=== PATIENT | male | born 1955 | race Caucasian/White ===

== ENCOUNTER 2017-08-05 13:51 | Inpatient (IN) | payer OTHER ==
[~2017-08-05] VITALS: Ht 190.5 cm; Wt 101.4 kg
[~2017-08-05 13:51] MED LIST: ACETAMINOPHEN325 M1 PO; ALDACTONE25 MG PO; AMLODIPINE; AMLODIPINE PO; ASPIR 8181 MG PO; ASPIRIN EC81 M1 PO; B-122500 MCG SL; BYSTOLIC10 MG PO; BYSTOLIC2.5 MG PO; CHOLESTEROL MED; CIPROFLOXACIN500 M3 OR; CLOPIDOGREL; COLACE100 MG OR; FISH OIL 1,0001 EAC5; FISH OIL 1,0001 EAC5 OR; FLEXERIL PO; FLOMAX OR; FLOMAX PO; GLUCOPHAGE XR500 MG; GLUCOPHAGE XR500 MG OR; GLUCOPHAGE1000 MG PAD; GLYCOLAX POWDER17 G1; HCTZ; HCTZ PO; LANTUS SC; LANTUS SQ; LISINOPRIL; LISINOPRIL20 MG OR; LISINOPRIL40 MG PO; LISINOPRIL5 MG PO; LORTAB PO; LOVAZA1000 MG OR; LOVAZA1000 MG PO; LUMIGAN2.5 M1 OPHTHALMIC; METFORMIN; MIRALAX17 GM PO; MULTIVITAMINS1 EAC7 PO; NEURONTIN 300300 M1 PO; NORCO 5-325 TA1 EACH PO; NORVASC10 MG PO; NOVOLOG100 UNIT/1 SUBQ; OMEPRAZOLE20 M2 OR; OXYCODON-ACETA1 EAC1 PO; OXYCODONE20 MG/1 ML PO; PLAVIX 75 MG TA75 MG PO; PRAVASTATIN SOD40 MG OR; PRISTIQ50 MG PO; PROTONIX40 M2; TOPROL XL50 MG PO; TOUJEO SOL300 UNIT/1 SQ; TRIBENZOR 40-11 EAC1 PO; UNKNOWN CHOLESTEROL; VICTOZA0.6 MG/0.1 SC; VICTOZA0.6 MG/0.1 SQ; VITAMIN D31000 UNI2 PO; ZOFRAN 4 MG ORAL4 M1 DIS
[2017-08-05 15:40] VITALS: BP 135/94
[2017-08-05 16:44] LABS: HEMATOCRIT 42.6 % (42.0-52.0); HEMOGLOBIN 14.1 gm/dL (14.0-18.0); MCH 27.5 pg (26.0-34.0); MCHC 33.1 g/dL (28.0-37.0); MCV 83.2 fL (80.0-100.0); RBC 5.13 mil/uL (4.50-6.00); RDW 13.7 % (10.5-14.5); WBC 13.2 thou/uL (4.0-11.0)
[2017-08-05 16:52] LABS: CALCIUM 9.3 mg/dL (8.5-10.1); CREATININE 2.6 mg/dL (0.7-1.3)
[2017-08-05 16:55] LABS: PROTIME 10.7 Seconds (9.3-11.4)
[2017-08-05 19:44] VITALS: BP 150/87
[2017-08-05 23:00] VITALS: BP 162/82
[2017-08-05 23:30] LABS: URINE BILIRUBIN NEGATIVE (Negative); URINE BLOOD 2+ (Negative); URINE COLOR YELLOW; URINE GLUCOSE-RANDOM* TRACE (Negative); URINE KETONES NEGATIVE (Negative); URINE NITRITE NEGATIVE (Negative); URINE PROTEIN (DIPSTICK) NEGATIVE (Negative); URINE UROBILINOGEN 0.2 E.U./dl (0.2-1.0)
[2017-08-05 23:52] LABS: BACTERIA 1-9 Few /HPF (None Seen); CASTS None Seen /LPF (None Seen); CRYSTALS None Seen /LPF (None Seen); SQUAMOUS None Seen /LPF (0-3); URINE RBC 3-10 Few /HPF (0-2); URINE WBC None Seen /HPF (0-5)
[2017-08-06 05:05] VITALS: BP 165/92
[2017-08-06 07:54] VITALS: BP 171/95
[2017-08-06 12:09] VITALS: BP 173/90
[2017-08-06 15:35] VITALS: BP 163/89
[2017-08-06 19:17] VITALS: BP 201/114
[2017-08-06 23:43] VITALS: BP 123/88
[2017-08-07 04:16] VITALS: BP 139/76
[2017-08-07 06:56] LABS: CALCIUM 8.5 mg/dL (8.5-10.1); CREATININE 2.7 mg/dL (0.7-1.3); POTASSIUM 3.8 mmol/L (3.5-5.1)
[2017-08-07 07:10] VITALS: BP 140/80
[2017-08-07 15:16] VITALS: BP 150/80
[2017-08-07 19:55] VITALS: BP 143/82
[2017-08-08 03:23] LABS: CALCIUM 8.1 mg/dL (8.5-10.1); CREATININE 2.5 mg/dL (0.7-1.3)
[2017-08-08 04:40] VITALS: BP 138/79
[2017-08-08 07:20] VITALS: BP 158/74
[2017-08-08] MEDS ORDERED: NORVASC10 MG PO (09:15)
[2017-08-08 09:45] VITALS: BP 158/74
== END 2017-08-08 10:28 | disposition home or self-care (01) | DRG 694 ==
LOC: 3W 13:51 → ENTRNSPT 08-08 10:21 → EDTRNSPTSTS 08-08 10:23 → 3W 08-08 10:28
PROVIDERS: Hospitalist; Urology
PROC: 0T778DZ Dilation of Left Ureter with Intraluminal Device, Via Natural or Artificial Opening Endoscopic (ICD-10-PCS; principal; 2017-08-07)
DX: N13.2 Hydronephrosis with renal and ureteral calculous obstruction (principal); N17.0 Acute kidney failure with tubular necrosis; E11.9 Type 2 diabetes mellitus without complications; I10 Essential (primary) hypertension; H40.9 Unspecified glaucoma; Z98.84 Bariatric surgery status; Z79.899 Other long term (current) drug therapy; Z86.73 Personal history of transient ischemic attack (TIA), and cerebral infarction without residual deficits
CPT/HCPCS: 10779; 50010; 50101; 50478; 51767; 56674; 56815; 62110; 62900; 70005

== ENCOUNTER → 2018-09-19 | Outpatient (CLI) | payer OTHER ==
[~2018-09-19] MED LIST changes: +ASA81BEC PO; +FLOMAX0.4 MG PO; +METOPROLOL SUCC50 MG PO; +MYRBETRIQ50 MG PO; +NORVASC2.5 MG PO; +PERCOCET 10-321 EACH PO
== END ==
LOC: MRI 09:33
DX: M62.552 Muscle wasting and atrophy, not elsewhere classified, left thigh (principal); M76.01 Gluteal tendinitis, right hip

== ENCOUNTER → 2019-04-23 | Outpatient (CLI) | payer OTHER ==
--- NOTE | 2019-04-23 11:05 | 2DMMODE ---
[facility] [employer] [place] [address] 2 D/M-MODE ECHOCARDIOGRAM Name: MONIQUE ZAMORA Room #: REG [facility]#: [id number] Admission: 04/23/19 Attend Phys: Tacho Aguilar Discharge: Date of : 53 Date of Service: 04/23/19 1105 Report #: [id number] THIS REPORT FOR: //name// APPROVED REPORT Study performed: 04/23/2019 09:56:29 EXAM: Comprehensive 2D, Doppler, and color-flow Echocardiogram Patient Location: Out-Patient Status: routine BSA: 2.37 HR: 40 bpm BP: 216/106 mmHg Rhythm: NSR/bradycardia Indications Bradycardia Hx: CVA, HTN, DM. 2D Dimensions RVDd: 40.40 mm IVSd: 12.67 (7-11mm) LVDd: 52.02 mm PWd: 9.15 (7-11mm) Ascending Ao: 41.36 (22-36mm) LVDs: 40.71 (25-40mm) Aortic Root: 38.01 mm Volumes Left Atrial Volume (Systole) Single Plane 4CH: 71.92 mL Single Plane 2CH: 93.37 mL LA ESV Index: 37.00 mL/m2 Aortic Valve AoV Peak Israel.: 1.56 m/s AO Peak Gr.: 9.74 mmHg LVOT Max P.04 mmHg LVOT Max V: 1.00 m/s Mitral Valve E/A Ratio: 1.4 MV Decel. Time: 364.23 ms MV E Max Israel.: 0.80 m/s MV A Israel.: 0.57 m/s MV PHT: 105.63 ms IVRT: 92.27 ms [facility] [email or web address] [address] 2 D/M-MODE ECHOCARDIOGRAM Name: MONIQUE ZAMORA You Room #: [facility]#: [id number] Admission: 04/23/19 Attend Phys: Tacho Aguilar Discharge: Date of : 53 Date of Service: 04/23/19 1105 Report #: [id number] Pulmonary Valve PV Peak Israel.: 0.93 m/s PV Peak Gr.: 3.45 mmHg Pulmonary Vein P Vein S: 0.61 m/s P Vein D: 0.53 m/s P Vein S/D Ratio: 1.15 Tricuspid Valve RAP Estimate: 5.00 mmHg Left Ventricle The left ventricle is normal size. There is normal LV segmental wall motion. Mild basal septal hypertrophy is present. Left ventricular systolic function is normal. LVEF is 55-60%. Moderate diastolic dysfunction is present (pseudonormal filling). Right Ventricle The right ventricle is normal size. The right ventricular systolic function is normal. Atria Left atrium is mildly dilated. Right atrium is mildly dilated. Aortic Valve Aortic valve is trileaflet and mildly calcified. Mild aortic regurgitation. There is no aortic valvular stenosis. Mitral Valve The mitral valve is normal in structure. Mild mitral regurgitation. Tricuspid Valve The tricuspid valve is normal in structure. Trace tricuspid regurgitation. Unable to assess PA pressure. Pulmonic Valve The pulmonary valve is normal in structure. Trace pulmonic regurgitation. Great Vessels Aortic root is borderline dilated. The ascending aorta is mildly dilated at 4.1cm. IVC is normal in size and collapses >50% with inspiration. [facility] [place] [employer] [place] [address] 2 D/M-MODE ECHOCARDIOGRAM Name: MONIQUE ZAMORA You Room #: REG [facility]#: [id number] Admission: 04/23/19 Attend Phys: Tacho Aguilar Discharge: Date of : 53 Date of Service: 04/23/19 1105 Report #: [id number] Pericardium There is no pericardial effusion. <Conclusion> The left ventricle is normal size. Left ventricular systolic function is normal. Moderate diastolic dysfunction is present (pseudonormal filling). The right ventricle is normal size. Left atrium is mildly dilated. Right atrium is mildly dilated. Aortic valve is trileaflet and mildly calcified. Mild aortic regurgitation. Mild mitral regurgitation. Trace tricuspid regurgitation. <ELECTRONICALLY SIGNED> By: Ishan Griffin MD 04/23/19 1105 Ishan Griffin MD /EVY
== END ==
LOC: NUC 04-01 06:29
DX: I08.0 Rheumatic disorders of both mitral and aortic valves (principal); E11.9 Type 2 diabetes mellitus without complications; I11.9 Hypertensive heart disease without heart failure; Z88.8 Allergy status to other drugs, medicaments and biological substances

== ENCOUNTER → 2019-05-05 | Outpatient (CLI) | payer OTHER ==
[~2019-05-05] VITALS: Ht 190.5 cm; Wt 109.8 kg
[~2019-05-05] MED LIST changes: +CRESTOR10 MG PO; +ZOLOFT50 MG PO
[2019-05-05 08:38] VITALS: BP 178/100
[2019-05-05 08:42] LABS: HEMATOCRIT 40.4 % (42.0-52.0); HEMOGLOBIN 13.1 gm/dL (14.0-18.0); MCH 26.9 pg (26.0-34.0); MCHC 32.3 g/dL (28.0-37.0); MCV 83.3 fL (80.0-100.0); RBC 4.85 mil/uL (4.50-6.00); RDW 15.1 % (10.5-14.5); WBC 7.7 thou/uL (4.0-11.0)
[2019-05-05 08:56] LABS: ANION GAP 8 mmol/L (7-16); BUN 31 mg/dL (7-18); CALCIUM 8.8 mg/dL (8.5-10.1); CHLORIDE 105 mmol/L (98-107); CO2 28 mmol/L (21-32); CREATININE 1.9 mg/dL (0.7-1.3); GLUCOSE 91 mg/dL (74-106); POTASSIUM 3.8 mmol/L (3.5-5.1); SODIUM 141 mmol/L (136-145)
[2019-05-05 09:02] LABS: CHOLESTEROL 209 mg/dL (<200); HDL CHOLESTEROL 58 mg/dL (>40); LDL CHOLESTEROL 135 mg/dL (<100); TC:HDL 3.6 Ratio (Not establshd); TRIGLYCERIDE 84 mg/dL (<150); VLDL 17 mg/dL (<40)
--- NOTE | 2019-05-05 13:31 | CATHLAB ---
[facility] [address] [place] [address] INVASIVE PROCEDURE REPORT Name: ZAMORAMONIQUE L Room #: REG [facility]#: [id number] ������������� Admission: 05/05/19 ������������� Attend Phys: Ishan Griffin MD Discharge: ��� ������������� ��� Date of : 53 Date of Service: 05/05/19 1331 �� Report #: [id number] �������� ��������������������������������������������[id number] THIS REPORT FOR: //name// APPROVED REPORT Study performed: 05/05/2019 12:15:35 Patient Details Patient Status: Out-Patient Room #: Event Personnel Ishan Griffin Plastic Roller, Ada Velez RN RN, Yusuf Giles RTR Scrub, Lawson Goldberg, Liz Francis RTR Scrub Procedures Performed Left Heart Cath w/or w/o Coronaries [id number] [facility] Indication Arrhythmia, Dyspnea, Positive stress test Risk Factors Peripheral Vascular Disease, Hypercholesterolemia, Hypertension Procedure Narrative The Right Groin^ was infiltrated with 1% Lidocaine subcutaneous anesthesia. A PINNACLE 5FR Sheath #[id number] sheath was inserted into the RFA^. Coronary angiography was performed using coronary diagnostic catheters. The right coronary system was accessed and visualized with a 5FR JR 4 #[id number] catheter. The left coronary system was accessed and visualized with a 5FR JL5 #[id number] catheter. Left ventricular/Aortic Valve gradient assessed via catheter pullback. Closure device was deployed with a 5 Fr MYNXGRIP 5F #[id number]. The patient tolerated the procedure well and there were no complications associated with the procedure. There was no hematoma. Intraoperative Conscious Sedation Sedation start time: 12.15 Case end Time: 12.37 Fentanyl 50 mcg Versed 1 mg Fluoro Time: 3.40 minutes Dose: DAP 5608.00 cGycm2 1235 mGy [facility] [address] [place] [address] INVASIVE PROCEDURE REPORT Name: ZAMORAMONIQUE L Room #: REG [facility]#: [id number] ������������� Admission: 05/05/19 ������������� Attend Phys: Ishan Griffin MD Discharge: ��� ������������� ��� Date of : 53 Date of Service: 05/05/19 1331 �� Report #: [id number] �������� ��������������������������������������������[id number] Contrast Type and Amount: Visipaque 32 ml Coronary Angiography The patient's coronary anatomy is co- dominant. Diagnostic Cath Left Main This is a large caliber vessel, patent with no flow-limiting lesions. LAD There is mild calcification in the proximal and mid segments. The proximal segment is patent with, with no flow-limiting lesions. There is mild to moderate disease in the mid segment, 40%. Diagonal 1 This is a small-caliber vessel with mild disease. Diagonal 2 This is a small-caliber vessel with mild disease. Circumflex This is a codominant vessel with minimal plaquing within the mid segment. OM1 This a moderate size caliber vessel, patent with no flow-limiting lesions. OM2 This a moderate size caliber vessel, patent with no flow-limiting lesions. OM3 This is a small-caliber vessel, patent with no flow-limiting lesions. Right Coronary This is a tortuous vessel, with mild disease proximally, 20%. R PDA This is a moderate size caliber vessel, patent with no flow-limiting lesions. Left Ventriculography Left Ventriculography was not performed. Ejection Fraction was 50-55% based off patient's Nuclear Cardiac Stress Test. An LVEDP was measured and there is no gradient across the outflow tract. Hemodynamics The aortic pressure is 186/92 mmHg with a mean of 127 mmHg. The left ventricular pressure is 181/10 mmHg with a mean of mmHg. There was no gradient across the aortic valve upon pullback. Pullback from the left ventricle to the aorta revealed no gradient across the aortic valve. Conclusion 1. Mild to moderate nonobstructive coronary artery disease. [facility] [address] [place] [address] INVASIVE PROCEDURE REPORT Name: MONIQUE ZAMORA Room #: REG [facility]#: [id number] ������������� Admission: 05/05/19 ������������� Attend Phys: Ishan Griffin MD Discharge: ��� ������������� ��� Date of : 53 Date of Service: 05/05/19 1331 �� Report #: [id number] �������� ��������������������������������������������[id number] 2. Normal LV systolic function. 3. Recommend aggressive risk factor management. ��������������������������������������������� <ELECTRONICALLY SIGNED> ���������������������������������������� By: Ishan Griffin MD ��������������������������������������������� 05/05/191330 30 30 Ishan Griffin MD /INF
--- NOTE | 2019-05-06 07:43 | EKG ---
[address] [address] ELECTROCARDIOGRAM REPORT Name: MONIQUE ZAMORA Room #: REG [facility]#: [id number] ������������������ Admission: 05/05/19 ������������������ Attend Phys: Ishan Griffin MD Discharge: ������������������ Date of : 53 Report #: [id number] ����������������������������������������������������������������� [id number] THIS REPORT FOR: //name// [facility] Test Date: 2019-05-05 Test Time: 08:39:50 Pat Name: MONIQUE ZAMORA Department: Room: Gender: Culturist: Hemanth FERNANDEZ : 1955 Requested By: Ishan Griffin Order Number: [id number] MD: Pedro Jacques Measurements Intervals [place] Rate: 61 P: 66 [place]: 212 QRS: -4 QRSD: 105 T: 36 QT: 463 QTc: 467 Interpretive Statements Sinus rhythm Borderline prolonged [place] interval Compared to ECG 04/28/2018 23:46:33 No significant change was found Electronically Signed On 05-06-2019 7:42:57 CDT by Pedro Jacques [email or web address] ��������������������������������������������� <ELECTRONICALLY SIGNED> ���������������������������������������� By: Pedro Jacques MD, [facility] ��������������������������������������������� 05/06/19 0742 8 8 Pedro Jacques MD, [facility] /EPI
== END | disposition home or self-care (01) ==
LOC: CATH 07:58
PROVIDERS: Internal Medicine Cardiovascular Disease
DX: I25.10 Atherosclerotic heart disease of native coronary artery without angina pectoris (principal); I49.9 Cardiac arrhythmia, unspecified; E11.9 Type 2 diabetes mellitus without complications; H40.9 Unspecified glaucoma; I10 Essential (primary) hypertension; E78.00 Pure hypercholesterolemia, unspecified; E66.9 Obesity, unspecified; G47.33 Obstructive sleep apnea (adult) (pediatric); Z68.41 Body mass index [BMI] 40.0-44.9, adult; Z86.73 Personal history of transient ischemic attack (TIA), and cerebral infarction without residual deficits; Z79.899 Other long term (current) drug therapy; Z79.82 Long term (current) use of aspirin

== ENCOUNTER 2019-05-09 06:53 | Observation (INO) | payer OTHER ==
[~2019-05-09] VITALS: Ht 190.5 cm; Wt 110.7 kg
[2019-05-09 07:33] LABS: ABSOLUTE NEUTROPHILS 4.7 thou/uL (1.4-8.2); BASOPHILS 0.7 % (0.0-2.0); EOSINOPHILS 2.5 % (0.0-3.0); HEMATOCRIT 40.4 % (42.0-52.0); MCH 26.7 pg (26.0-34.0); MCHC 32.1 g/dL (28.0-37.0); MCV 83.4 fL (80.0-100.0); MONOCYTES 8.3 % (1.0-8.0); PLATELET COUNT 217 thou/uL (150-400); POLYS 64.5 % (36.0-66.0); RBC 4.85 mil/uL (4.50-6.00); RDW 14.7 % (10.5-14.5); WBC 7.3 thou/uL (4.0-11.0)
[2019-05-09 07:36] VITALS: BP 156/82
[2019-05-09 07:45] LABS: CREATININE 2.2 mg/dL (0.7-1.3)
[2019-05-09 07:46] LABS: PROTIME 10.6 Seconds (9.3-11.4)
[2019-05-09 07:50] LABS: ALBUMIN 3.6 g/dL (3.4-5.0); TOTAL BILIRUBIN 0.7 mg/dL (<0.1-1.0); TOTAL PROTEIN 7.6 g/dL (6.4-8.2)
[2019-05-09 13:06] VITALS: BP 168/97
[2019-05-09] MEDS ORDERED: HYDROCHLOROTHIA25 M1 PO (15:14)
[2019-05-09] MEDS ORDERED: BYSTOLIC10 MG PO (15:14)
[2019-05-09] MEDS ORDERED: COZAAR 50 MG TA50 M1 PO (15:14)
[2019-05-09] MEDS ORDERED: NORVASC2.5 MG PO (15:14)
[2019-05-09] MEDS ORDERED: FLOMAX0.4 MG PO (15:14)
[2019-05-09 15:49] LABS: URINE BILIRUBIN NEGATIVE (Negative); URINE BLOOD NEGATIVE (Negative); URINE CLARITY CLEAR; URINE COLOR YELLOW; URINE GLUCOSE-RANDOM* NEGATIVE (Negative); URINE KETONES NEGATIVE (Negative); URINE LEUKOCYTES-REFLEX NEGATIVE (Negative); URINE NITRITE-REFLEX NEGATIVE (Negative); URINE PROTEIN (DIPSTICK) NEGATIVE (Negative); URINE UROBILINOGEN 0.2 E.U./dl (0.2-1.0)
[2019-05-09 17:05] VITALS: BP 162/96
--- NOTE | 2019-05-09 17:19 | NUR ---
TO THE UNIT POST PACEMEKER PLACEMENT. PT AND ORIENTED TO ROOM AND BEDSPACE. ASSESSMENT CHARTED. INCISION TO LEFT CHEST C/D/I. L ARM REMIANS IN [facility]. PT UP TO THE BATHROOM TO VOID POST PROCEDURE - CO'S OF PAIN WITH VOID, UA SENT TO THE LAB - NEGATIVE - DR MILLAN AWARE - STATED TO SEE UROLOGIST NEXT WEEK - PATIENT INFORMED. MEDS PER MAR - JAEL DIET AND FLUIDS. NO CO'S OF PAIN OR NAUSEA. NO CO'S AT THE PRESENT TIME.
[2019-05-09 20:08] VITALS: BP 139/73
[2019-05-10 00:49] VITALS: BP 140/86
--- NOTE | 2019-05-10 01:47 | NUR ---
ASSESSMENTS CHARTED. MEDS GIVEN CHARTED. PATIENT RESTING IN BED DURING SHIFT. ARM IMMOBILIZER IN PLACE. PATIENT IS A-PACED, AV-PACED ON TELEMETRY. DENIED PAIN. FALL PRECAUTIONS IN PLACE, UP WITH STANDBY ASSIST TO USE URINAL. PLAN OF CARE IS TO GET XRAY IN AM TO VERIFY PLACEMENT, ASSESS PACEMAKER UNIT THEN GO HOME.
[2019-05-10 05:23] VITALS: BP 154/80
[2019-05-10 07:35] VITALS: BP 140/91
[2019-05-10 10:58] VITALS: BP 140/91
--- NOTE | 2019-05-10 12:11 | NUR ---
ASSUMED PT CARE AT APPROXIMATELY 0700. PT A&O X4. ASSESSMENT CHARTED. FALL PRECAUTIONS IN PLACE. PT STATED HE DID NOT HAVE CHEST PAIN. PT STATED HE WAS NOT SOB. VITAL SIGNS STABLE. PT RECEIVED X-RAY THIS MORNING. PT DISCHARGING HOME WITH . PT RECEIVED DISCHARGE EDUCATION AND INFORMATION. PT STATED UNDERSTANDING WITH DISCHARGE EDUCATION AND DENIED HAVING FURTHER QUESTIONS. PT TRANSFERRED OFF UNIT WITH CCU TECH. IS DRIVING HOME. PT'S AMMBULATION IS STEADY AND BALANCED. PT TRANSFERRED OFF UNIT AT APPROXIMATLEY 1200. IV'S DC. TELE DC.
--- NOTE | 2019-05-14 08:22 | P ---
[facility] [place] [address] PROCEDURE REPORT Name: MONIQUE ZAMORA You Room #: 207-P [facility] M..#: [id number] Admission: 05/09/19 ������������������ Attend Phys: Tacho Aguilar MD Discharge: 05/10/19 ������������������ Date of : 53 Report #: [id number] THIS REPORT FOR: //name// CC: Concepción Aguilar PROCEDURE: Pacemaker implantation. HISTORY: The patient is a 64-year-old with history of hypertension as well as chronic renal insufficiency, who has recently been having bouts of sinus bradycardia due to his Bystolic therapy. Due to symptomatic bradycardia, this was discontinued, but his blood pressure has been very difficult to control. He has also recently been diagnosed with prostate cancer, which will require a radiation therapy. He is here for a dual chamber pacemaker implantation. ANESTHESIA: The patient underwent MAC anesthesia with no anesthesia related complications. DESCRIPTION OF PROCEDURE: The patient underwent informed consent. We discussed the details of the procedure including the risks, which include, but not limited to, bleeding, infection, vascular damage, cardiac perforation, and pneumothorax. He understood these risks and is willing to proceed. The patient was brought to the EP laboratory in a fasting and sedated state and prepped and draped in a sterile fashion and underwent a venogram showing a patency of the left axillary vein. He received the Anc for antibiotic prophylaxis. Next, lidocaine was injected below the level of the left clavicle, incision was made, and pocket was created over the prepectoral fascia. Access was obtained twice to the left axillary vein using the extrathoracic approach with sheaths positioned using the modified Seldinger technique. Next, under fluoroscopy, a lead was placed into the right ventricular mid septum and the other lead was placed in the right atrial appendage, both with the adequate pacing and sensing thresholds. Leads were sutured to prepectoral fascia using Ethibond suture. Pocket was irrigated with vancomycin. Device was connected, tested, and found to be functioning normally. Pocket was closed in 2 layers using 2-0 for the deep layer, 3-0 for the middle layer, and surgical glue was placed on the outer skin layer. The patient awoke neurologically and hemodynamically intact. No complications and no significant bleeding. The implanted pacemaker was a [employer], model #PC0199, serial #[id number]. Atrial lead, [employer], model #2088TC, 52 cm, serial #[id number]. The ventricular lead was a [employer], model #2088TC, 58 cm, serial #[id number]. The atrial lead demonstrated P-wave of 3.6 millivolts, pacing impedance 490 ohms, pacing threshold 0.5 volts at 0.4 milliseconds. The RV lead demonstrated an R-wave of 4.5 millivolts, pacing impedance of 630 ohms, and the pacing threshold of 0.5 volts at 0.4 milliseconds. The device is programmed to the DDDR 60-130 mode. [facility] [address] [place] [address] PROCEDURE REPORT Name: ZAMORAMONIQUE Room #: 207-P DIS Nyla Rojas#: [id number] Admission: 05/09/19 ������������������ Attend Phys: Tacho Aguilar MD Discharge: 05/10/19 ������������������ Date of : 53 Report #: [id number] CONCLUSIONS: 1. Successful dual-chamber pacemaker implantation. 2. Satisfactory atrial and ventricular pacing and sensing threshold. ��������������������������������������������� <ELECTRONICALLY SIGNED> ���������������������������������������� By: Tacho Aguilar MD ��������������������������������������������� 05/14/19 0822 1041 2249 Tacho Aguilar MD /nt
== END 2019-05-10 13:00 | disposition home or self-care (01) ==
LOC: CATH 06:53 → 2N 12:50
PROVIDERS: Nurse Practitioner; ADMIT Internal Medicine Cardiovascular Disease
DX: R00.1 Bradycardia, unspecified (principal); I12.9 Hypertensive chronic kidney disease with stage 1 through stage 4 chronic kidney disease, or unspecified chronic kidney disease; E11.22 Type 2 diabetes mellitus with diabetic chronic kidney disease; N18.9 Chronic kidney disease, unspecified; N17.9 Acute kidney failure, unspecified; E78.00 Pure hypercholesterolemia, unspecified; G47.33 Obstructive sleep apnea (adult) (pediatric); E66.01 Morbid (severe) obesity due to excess calories; Z68.41 Body mass index [BMI] 40.0-44.9, adult; Z79.82 Long term (current) use of aspirin; Z79.899 Other long term (current) drug therapy
CPT/HCPCS: 62110; 62900; 70005

== ENCOUNTER → 2019-06-09 | Outpatient (CLI) | payer OTHER, MEDICARE ==
[~2019-06-09] VITALS: Ht 190.5 cm; Wt 97.5 kg
[~2019-06-09] MED LIST changes: +COZAAR 50 MG TA50 M1 PO; +HYDROCHLOROTHIA25 M1 PO
[2019-06-09 06:53] VITALS: BP 193/98
--- NOTE | 2019-06-09 08:22 | EKG ---
[address] [address] ELECTROCARDIOGRAM REPORT Name: MONIQUE ZAMORA [id number] Admission: 06/09/19 Attend Phys: Ishan Griffin MD Discharge: Date of : 53 Report #: [id number] THIS REPORT FOR: //name// [facility] Test Date: 2019-06-09 Test Time: 07:14:17 Pat Name: MONIQUE ZAMORA Department: Room: Gender: M Veterinary Attendant: Calvin TOVAR : 1955 Requested By: Ishan Griffin Order Number: [id number] MD: Pedro Jacques Measurements Intervals [place] Rate: 60 P: OR: QRS: -8 QRSD: 106 T: 19 QT: 463 QTc: 463 Interpretive Statements Sinus rhythm No significant abnormality Compared to ECG 05/05/2019 08:39:50 no significant change was found Electronically Signed On 06-09-2019 8:22:42 CDT by Pedro Jacques [email or web address] <ELECTRONICALLY SIGNED> By: Pedro Jacques MD, [facility] 06/09/19821 3 3 Pedro Jacques MD, FACC /EPI
[2019-06-09 08:34] LABS: HEMATOCRIT 38.9 % (42.0-52.0); HEMOGLOBIN 12.6 gm/dL (14.0-18.0); MCH 27.2 pg (26.0-34.0); MCHC 32.3 g/dL (28.0-37.0); MCV 84.1 fL (80.0-100.0); RBC 4.62 mil/uL (4.50-6.00); RDW 14.7 % (10.5-14.5); WBC 7.5 thou/uL (4.0-11.0)
[2019-06-09 08:45] LABS: CALCIUM 8.7 mg/dL (8.5-10.1); POTASSIUM 4.1 mmol/L (3.5-5.1)
== END | disposition home or self-care (01) ==
LOC: CATH 06:28
PROVIDERS: Internal Medicine Cardiovascular Disease
DX: R06.02 Shortness of breath (principal); Z53.8 Procedure and treatment not carried out for other reasons; I10 Essential (primary) hypertension; E78.5 Hyperlipidemia, unspecified; G47.33 Obstructive sleep apnea (adult) (pediatric); M19.90 Unspecified osteoarthritis, unspecified site; F32.9 Major depressive disorder, single episode, unspecified; H40.9 Unspecified glaucoma; M10.9 Gout, unspecified; I42.9 Cardiomyopathy, unspecified; Z98.890 Other specified postprocedural states; E66.09 Other obesity due to excess calories; I73.9 Peripheral vascular disease, unspecified; Z95.0 Presence of cardiac pacemaker; Z85.46 Personal history of malignant neoplasm of prostate; N28.9 Disorder of kidney and ureter, unspecified; Z86.73 Personal history of transient ischemic attack (TIA), and cerebral infarction without residual deficits; Z82.49 Family history of ischemic heart disease and other diseases of the circulatory system; Z79.899 Other long term (current) drug therapy

== ENCOUNTER → 2019-09-10 | Outpatient (CLI) | payer OTHER, MEDICARE | LOC: SJCVC 11:29 | DX: Z45.018 Encounter for adjustment and management of other part of cardiac pacemaker (principal); R94.31 Abnormal electrocardiogram [ECG] [EKG]; I48.0 Paroxysmal atrial fibrillation; E78.00 Pure hypercholesterolemia, unspecified; M19.90 Unspecified osteoarthritis, unspecified site; E11.22 Type 2 diabetes mellitus with diabetic chronic kidney disease; I13.10 Hypertensive heart and chronic kidney disease without heart failure, with stage 1 through stage 4 chronic kidney disease, or unspecified chronic kidney disease; N18.9 Chronic kidney disease, unspecified; M10.9 Gout, unspecified; E66.9 Obesity, unspecified; Z79.899 Other long term (current) drug therapy ==